=== PATIENT | female | born 1940 | race Caucasian/White ===

== ENCOUNTER → 2017-08-23 | Day surgery (SDC) | payer MEDICARE ==
[2015-07-10 07:20] VITALS: BMI 31.1
[~2017-08-23] MED LIST: Lidocaine 2% Inj (20ml) ONE
[2017-08-23 10:00] VITALS: RESP 18
--- NOTE | 2017-08-23 10:46 | CP.SDSHP ---
Same Day Surgery H & P - History Proposed Procedure: US guided FNA of left thyroid nodule Pre-Op Diagnosis: Thyroid nodule - Allergies Allergies: Allergies iodine Allergy (Intermediate, Verified 07/15/15 09:28) FATIGUE FAINTED - Physical Exam Vital Signs: Vital Signs 08/23/17 09:30 Temperature 97.3 F L Pulse Rate 90 Respiratory 18 Rate Blood Pressure 125/54 L O2 Sat by Pulse 97 Oximetry Mental Status: Alert & Oriented x3 - Impression Impression: Pt with multiple left thyroid nodule referred for FNA of largest nodule. Plan US guided FNA of midpole 4.6 cm nodule Pt. Evaluated Today:Candidate for Anesthesia & Procedure: No Short Stay Discharge - Short Stay Discharge Admitting Diagnosis/Reason for Visit: THYROID BIOPSY
--- NOTE | 2017-08-23 10:47 | PCM.SURG1 ---
Surgeon's Initial Post Op Note - Surgeon's Notes Surgeon: Omari Gama MD Jewelry Racker: NONE Type of Anesthesia: Local Pre-Operative Diagnosis: left thyroid nodule Operative Findings: Multiple left and right thyroid nodules Post-Operative Diagnosis: left thyroid nodule Operation Performed: US guided FNA of left thyroid nodule Specimen/Specimens Removed: 25 g FNA x 5 passes Estimated Blood Loss: EBL {In ML}: 1 Blood Products Given: N/A Drains Used: No Drains Post-Op Condition: Good Date of Surgery/Procedure: 08/23/17 Time of Surgery/Procedure: 10:40
[2017-08-23 10:56] VITALS: BP 148/71; PULSE 100; TEMP 97.8; O2SAT 100
== END | disposition home or self-care (01) ==
LOC: C.SPRAD 09:11
PROVIDERS: ATTEND Radiology Vascular & Interventional Radiology
DX: E04.1 Nontoxic single thyroid nodule (principal)